=== PATIENT | male | born 1955 | race Caucasian/White ===

== ENCOUNTER 2017-05-04 10:56 | Emergency (ER) | payer OTHER ==
[~2017-05-04] VITALS: Ht 165.1 cm; Wt 70.2 kg
[~2017-05-04 10:56] MED LIST: ASPIR 8181 MG PO; ERYTHROMYC1 APPLICAT LEFT EYE; HYDROCODON-ACE1 EAC8 PO; LIPITOR20 MG PO; LISINOPRIL5 MG PO; MELOXICAM7.5 MG PO; NASONEX17 GM NS; SERTRALINE HCL100 MG PO; TRAZODONE HCL50 MG PO; ULTRAM50 MG PO; VALIUM10 MG PO
[2017-05-04 12:10] LABS: EOSINOPHIL COUNT 0.1 K/uL (0-0.3); IMMATURE GRANULOCYTE (%) 0.5 % (0.0-0.7); INSTRUMENT ABS NEUTROPHIL CT 4.2 K/uL; LYMPHOCYTE COUNT 1.3 K/uL (1.0-2.8); MCH 29.3 PG (29.0-34.0); MCHC 33.3 G/DL (30.0-36.0); MCV 88.1 FL (86-99); MEAN PLAT.VOLUME 8.5 uM^3 (9.0-12.4); MONOCYTE COUNT 0.4 K/uL (0-0.8); NEUTROPHIL (%) 69.7 % (45-76); NEUTROPHIL COUNT 4.2 K/uL (1.8-6.4); PLATELET COUNT 202 K/uL (156-360); RBC DIS.WIDTH-CV 12.2 % (11.8-14.6); RBC DIS.WIDTH-SD 39.4 % (39-53); RED BLOOD COUNT 4.54 M/uL (4.00-5.50)
[2017-05-04 12:19] LABS: CHLORIDE 105 mEq/L (99-109); POTASSIUM 4.1 mEq/L (3.7-5.4); SODIUM 141 mEq/L (136-147)
[2017-05-04 12:22] LABS: GLUCOSE 101 mg/dL (70-99)
[2017-05-04 12:23] LABS: ANION GAP 10 MEQ/L (2-14)
[2017-05-04 12:24] LABS: TOTAL BILIRUBIN 0.3 mg/dL (0.0-1.0)
[2017-05-04 12:25] LABS: ALKALINE PHOSPHATASE 63 IU/L (3-129)
[2017-05-04 12:26] LABS: GFR ESTIMATE (CALCULATED) > 59 mL/min/
[2017-05-04 12:27] LABS: DIRECT BILIRUBIN 0.1 mg/dL (0.0-0.3); UREA NITROGEN (BUN) 13 mg/dL (9-23)
[2017-05-04] MEDS ORDERED: CYCLOBENZAPRINE5 MG PO (12:36)
[2017-05-04 13:07] VITALS: BP 147/84
[2017-05-04 13:10] LABS: HPCA INDEX 0.08
[2017-05-04 13:11] LABS: AHBS INDEX 0.16; HEPATITIS B SURFACE ANTIBODY Nonreactive; HIV INDEX 0.15; HIV-1/2 AB/AG COMBO Nonreactive
== END 2017-05-04 13:08 | disposition home or self-care (01) ==
LOC: EME 10:56
PROVIDERS: Nurse Practitioner Family
DX: S61.231A Puncture wound without foreign body of left index finger without damage to nail, initial encounter (principal); W46.0XXA Contact with hypodermic needle, initial encounter; Z77.21 Contact with and (suspected) exposure to potentially hazardous body fluids; Z87.891 Personal history of nicotine dependence
CPT/HCPCS: 80048; 80076; 85025; 86703; 86706; 86803; 99281; 99284